=== PATIENT | female | born 1995 | race Caucasian/White ===

== ENCOUNTER 2023-12-12 20:36 | Emergency (ER) | payer OTHER ==
[~2023-12-12] VITALS: Ht 170.2 cm; Wt 72.6 kg
[2023-12-12 20:43] VITALS: BP_SYST 123; PULSE 72; RESP 18; TEMP 98.1; O2SAT 100
[2023-12-12] MEDS: DEXAMETHASONE SOD PHOSPHATE 10 MG/ML VIAL PO ONE (21:03)
[2023-12-12] MEDS ORDERED: CETI10CA11 PO (21:40)
[2023-12-12] MEDS: MECLIZINE HCL 25 MG TABLET (ANITVERT) PO ONE (21:48)
[2023-12-12 21:56] VITALS: BP_SYST 123; PULSE 72; RESP 18; TEMP 98.1; O2SAT 100
== END 2023-12-12 21:55 | disposition home or self-care (01) ==
LOC: SED 20:36
DX: R42 Dizziness and giddiness (principal)
CPT/HCPCS: 99283; 93005; 81025; J1100; J8597